=== PATIENT | male | born 1975 | race Caucasian/White ===

== ENCOUNTER → 2018-01-31 | Outpatient (CLI) | payer OTHER ==
[~2018-01-31] MED LIST: IOPAMIDOL (ISOVUE-300) 100 ML BTL ONE
== END ==
LOC: FIMAGING 10:03
PROVIDERS: ATTEND Physician Assistant
DX: R10.30 Lower abdominal pain, unspecified (principal); Q42.8 Congenital absence, atresia and stenosis of other parts of large intestine; Z90.49 Acquired absence of other specified parts of digestive tract
CPT/HCPCS: Q9967